=== PATIENT | male | born 1960 | race American Indian/Alaskan Native ===

== ENCOUNTER 2017-06-19 13:14 | Emergency (ER) | payer BC ==
[2017-06-19 16:22] LABS: Bilirubin,Urine NEG (Negative); Blood,Urine NEG (Negative); Color,Urine Yellow (Yellow); Mucus,Urine FEW /HPF; Nitrite,Urine NEG (Negative); Protein,Urine <15 mg/dL mg/dL (Negative); Urobilinogen,Urine < 2.0 mg/dL (<2.0)
--- NOTE | 2017-06-19 19:09 | Emergency Department Report ---
ED Back Pain/Injury HPI - General Chief Complaint: Back Pain/Injury Stated Complaint: BACK PAINS Time Seen by Provider: 06/19/17 18:56 Source: patient Limitations: No Limitations - History of Present Illness Initial Comments: This is a 56-year-old male nontoxic, well nourished in appearance, no acute signs of distress presents to the ED with c/o of low back pain status post fall that occurred 2 weeks ago. He stated he was at work and slipped on the stairs walking down a landed on his lower back. Patient denies any bladder or bowel instability. Patient denies any numbness, tingling, fever, chills, nausea, vomiting, headache, stiff neck, chest pain or shortness of breath. Patient denies any other trauma. Patient denies loss of consciousness. Denies any head trauma. Patient denies any allergies or past medical history. MD Complaint: back pain, fall -: week(s) (2) Similar Symptoms Previously: No Place: work Radiation: none Severity: mild Severity scale (0 -10): 8 Quality: aching Consistency: constant Improves With: none Worsens With: none Context: while lifting, turning/twisting, fall Associated Symptoms: denies other symptoms. denies: confusion, weakness, chest pain, numbness, difficulty walking, cough, difficulty urinating, diaphoresis, incontinence, fever/chills, constipation, headaches, abdominal pain, loss of appetite, malaise, nausea/vomiting, rash, seizure, shortness of breath, syncope - Related Data Previous Rx's Medication Instructions Recorded Last Taken Type Cyclobenzaprine [Flexeril] 10 mg PO QHS PRN #7 tablet 06/19/17 Unknown Rx Ibuprofen [Motrin] 600 mg PO Q8H PRN #30 tablet 06/19/17 Unknown Rx Allergies Allergy/AdvReac Type Severity Reaction Status Date / Time No Known Allergies Allergy Unverified 06/19/17 14:20 ED Review of Systems ROS: Stated complaint: BACK PAINS Other details as noted in HPI Constitutional: denies: chills, fever Eyes: denies: eye pain, eye discharge, vision change ENT: denies: ear pain, throat pain Respiratory: denies: cough, shortness of breath, wheezing Cardiovascular: denies: chest pain, palpitations Endocrine: no symptoms reported Gastrointestinal: denies: abdominal pain, nausea, diarrhea Genitourinary: denies: urgency, dysuria Musculoskeletal: back pain. denies: joint swelling, arthralgia Skin: denies: rash, lesions Neurological: denies: headache, weakness, paresthesias Psychiatric: denies: anxiety, depression Hematological/Lymphatic: denies: easy bleeding, easy bruising ED Past Medical Hx - Past Medical History Previous Medical History?: No - Surgical History Past Surgical History?: No - Social History Smoking Status: Former Smoker Substance Use Type: Alcohol, Non Opiate Pain - Medications Home Medications: Home Medications Medication Instructions Recorded Confirmed Last Taken Type Cyclobenzaprine [Flexeril] 10 mg PO QHS PRN #7 tablet 06/19/17 Unknown Rx Ibuprofen [Motrin] 600 mg PO Q8H PRN #30 tablet 06/19/17 Unknown Rx ED Physical Exam - General Limitations: No Limitations General appearance: alert, in no apparent distress - Head Head exam: Present: atraumatic, normocephalic - Eye Eye exam: Present: normal appearance Pupils: Present: normal accommodation - ENT ENT exam: Present: mucous membranes moist - Neck Neck exam: Present: normal inspection, full ROM. Absent: tenderness, meningismus, lymphadenopathy, thyromegaly - Respiratory Respiratory exam: Present: normal lung sounds bilaterally. Absent: respiratory distress, wheezes, rales, rhonchi, stridor, chest wall tenderness, accessory muscle use, decreased breath sounds, prolonged expiratory - Cardiovascular Cardiovascular Exam: Present: regular rate, normal rhythm, normal heart sounds. Absent: bradycardia, tachycardia, irregular rhythm, systolic murmur, diastolic murmur, rubs, gallop - GI/Abdominal GI/Abdominal exam: Present: soft, normal bowel sounds. Absent: distended, tenderness, guarding, rebound, rigid, diminished bowel sounds - Rectal Rectal exam: Present: deferred - Extremities Exam Extremities exam: Present: normal inspection, full ROM, normal capillary refill. Absent: tenderness, pedal edema, joint swelling, calf tenderness - Back Exam Back exam: Present: normal inspection, full ROM, paraspinal tenderness (lumbar region), vertebral tenderness (lumbar region). Absent: tenderness, CVA tenderness (R), CVA tenderness (L), muscle spasm, rash noted - Expanded Back Exam Expanded Back exam: Present: normal rectal tone. Absent: saddle anesthesia Back exam: Negative Straight Leg Raising: Left, Right - Neurological Exam Neurological exam: Present: alert, oriented X3, CN II-XII intact, normal gait, reflexes normal - Psychiatric Psychiatric exam: Present: normal affect, normal mood - Skin Skin exam: Present: warm, dry, intact, normal color. Absent: rash - Other Other exam information: No bladder or bowel instability. No joint swelling or redness. No deformity. No numbness, no tingling. No ecchymosis. No abdominal distention. ED Course Vital Signs 06/19/17 14:20 Temperature 98.1 F Pulse Rate 61 Respiratory 18 Rate Blood Pressure 122/81 O2 Sat by Pulse 97 Oximetry - Reevaluation(s) Reevaluation #1: 06/19/17 19:10 Patient is speaking in full sentences with no signs of distress noted. ED Medical Decision Making - Medical Decision Making ED course; this is a 56-year-old male that presents with low back strain 1- patient was examined by me patient is stable. X-ray of lumbar spine has been obtained and dictated by radiologist within normal limits. Patient is notified of x-ray results with no questions noted by the patient. 2- patient received ibuprofen in the ED with persistent symptoms are improving and are subsiding. 3- patient received ibuprofen and Flexeril at discharge and was instructed not to operate any machinery while taking Flexeril due to sebaceous drowsiness. 4- patient was instructed to Follow-up with your primary care doctor in 3-5 days or if symptoms worsen such as bladder or bowel stability, chest pain, short of breath, numbness or tingling sensation in extremities, headache, dizziness, visual changes, nausea vomiting, or abdominal pain, return back to emergency room as was possible. 5- At time time of discharge, the patient does not seem toxic or ill in appearance. No acute signs of distress noted. Patient agrees to discharge treatment plan of care. No further questions noted by the patient. Critical care attestation.: If time is entered above; I have spent that time in minutes in the direct care of this critically ill patient, excluding procedure time. ED Disposition Clinical Impression: Low back strain Qualifiers: Encounter type: initial encounter Qualified Code(s): S39.012A - Strain of muscle, fascia and tendon of lower back, initial encounter Fall Qualifiers: Encounter type: initial encounter Qualified Code(s): W19.XXXA - Unspecified fall, initial encounter Disposition: DC-01 TO HOME OR SELFCARE Is pt being admited?: No Does the pt Need Aspirin: No Condition: Stable Instructions: Low Back Strain (ED), Fall Prevention (ED), Cyclobenzaprine (By mouth), Ibuprofen (By mouth) Additional Instructions: Follow-up with your primary care doctor in 3-5 days or if symptoms worsen such as bladder or bowel stability, chest pain, short of breath, numbness or tingling sensation in extremities, headache, dizziness, visual changes, nausea vomiting, or abdominal pain, return back to emergency room as was possible. Take ibuprofen and Flexeril as prescribed. Do not operate heavy machinery while taking Flexeril due to sedation Prescriptions: Cyclobenzaprine [Flexeril] 10 mg PO QHS PRN #7 tablet PRN Reason: Muscle Spasm Ibuprofen [Motrin] 600 mg PO Q8H PRN #30 tablet PRN Reason: Pain Referrals: PRIMARY CAREMD [Primary Care Provider] - 3-5 Days JOSE HERNÁNDEZ MD [Staff Physician] - 3-5 Days [facility] [Outside] - 3-5 Days [facility] [Outside] - 3-5 Days Forms: Work/School Release Form(ED)
[2017-06-19] MEDS ORDERED: MOTRIN PO ONE (19:11)
[2017-06-19 19:21] VITALS: BP 121/82
--- NOTE | 2017-06-19 19:57 | XRay Report ---
FINAL REPORT PROCEDURE: XR SPINE LUMBOSACRAL 2-3V TECHNIQUE: Lumbar spine, three views HISTORY: spinal lumbar pain s/p fall COMPARISON: No prior studies are available for comparison. FINDINGS: There is 3 millimeters anterolisthesis of L5 on S1. Vertebral body heights are maintained. There are small anterior osteophytes seen at L3-4 and L4-5. No scoliosis. IMPRESSION: No acute fracture is seen. There is grade 1 anterolisthesis of L5 on S1, of uncertain chronicity, possibly chronic
== END 2017-06-19 20:35 | disposition home or self-care (01) ==
LOC: ED 13:14
DX: S39.012A Strain of muscle, fascia and tendon of lower back, initial encounter (principal); W18.30XA Fall on same level, unspecified, initial encounter; Y93.89 Activity, other specified; Y92.89 Other specified places as the place of occurrence of the external cause; Y99.8 Other external cause status
CPT/HCPCS: 72100; 81001

== ENCOUNTER 2018-01-17 15:40 | Emergency (ER) | payer BC ==
[2018-01-17 16:12] LABS: Basophils % (Auto) 0.5 % (0.0-1.8); Eosinophils % (Auto) 0.6 % (0.0-4.3); Hematocrit 44.9 % (35.5-45.6); Hemoglobin 14.7 gm/dl (11.8-15.2); Lymphocytes # (Auto) 1.8 K/mm3 (1.2-5.4); Lymphocytes % (Auto) 22.2 % (13.4-35.0); Mean Corpuscular HGB Conc 33 % (32-34); Mean Corpuscular Hemoglobin 31 pg (28-32); Mean Corpuscular Volume 95 fl (84-94); Monocytes # (Auto) 0.9 K/mm3 (0.0-0.8); Monocytes % (Auto) 11.6 % (0.0-7.3); Platelet Count 216 K/mm3 (140-440); Red Blood Count 4.74 M/mm3 (3.65-5.03); Red Cell Distribution Width 13.7 % (13.2-15.2)
[2018-01-17 16:37] LABS: BUN/Creatinine Ratio 21; Blood Urea Nitrogen 17 mg/dL (9-20); Calcium 9.4 mg/dL (8.4-10.2); Hemolysis Index 10
[2018-01-17] MEDS ORDERED: TYLENOL PO ONE (18:18)
[2018-01-17] MEDS ORDERED: MOTRIN PO ONE (18:18)
--- NOTE | 2018-01-17 18:19 | Emergency Department Report ---
ED General Adult HPI - General Chief complaint: Weakness Stated complaint: LEFT ARM NUMB/TINGLE Time Seen by Provider: 01/17/18 17:57 Source: patient, RN notes reviewed, old records reviewed Mode of arrival: Ambulatory Limitations: Physical Limitation - History of Present Illness Initial comments: This is a 57-year-old gentleman who is not known to this provider, who is a [id number] male. He presents to the ER with 2 complaints. His first complaint is left wrist and volar hand numbness. This is painless, present for 2 months, intermittent, does not radiate, does not have exacerbating or relieving factors. He reports the numbness begins at his fingertips on his ring and pinky, moves to his wrist. It does not move further proximal than that. He denies headache, neck pain, chest pain, abdominal pain, shortness of breath, loss of vision, bladder or bowel retention/incontinence. He has a secondary complaint of nontraumatic left-sided shoulder pain which started yesterday. It is sharp, increases with palpation, range of motion and decreases with rest. It does not radiate anywhere. No inciting factors that he is aware of. -: Gradual Location: left, upper extremity Radiation: non-radiation Quality: other Consistency: other Improves with: other Worsens with: other Associated Symptoms: other. denies: confusion, chest pain, cough, diaphoresis, fever/chills, headaches, loss of appetite, malaise, nausea/vomiting, rash, seizure, shortness of breath, syncope, weakness - Related Data Previous Rx's Medication Instructions Recorded Last Taken Type Cyclobenzaprine [Flexeril] 10 mg PO QHS PRN #7 tablet 06/19/17 Unknown Rx Ibuprofen [Motrin] 600 mg PO Q8H PRN #30 tablet 06/19/17 Unknown Rx Acetaminophen [Tylenol Arthritis] 650 mg PO Q6HR PRN #30 tablet.er 01/17/18 Unknown Rx Ibuprofen [Motrin] 600 mg PO Q8H PRN #30 tablet 01/17/18 Unknown Rx Allergies Allergy/AdvReac Type Severity Reaction Status Date / Time No Known Allergies Allergy Verified 01/17/18 15:51 ED Review of Systems ROS: Stated complaint: LEFT ARM NUMB/TINGLE Other details as noted in HPI Constitutional: denies: fever, malaise Eyes: denies: eye discharge ENT: denies: epistaxis Respiratory: denies: cough Cardiovascular: denies: chest pain Gastrointestinal: denies: abdominal pain Genitourinary: denies: urgency Musculoskeletal: arthralgia Skin: denies: lesions Neurological: paresthesias Psychiatric: denies: anxiety ED Past Medical Hx - Past Medical History Previous Medical History?: No - Surgical History Additional Surgical History: NONE - Social History Smoking Status: Never Smoker Substance Use Type: None - Medications Home Medications: Home Medications Medication Instructions Recorded Confirmed Last Taken Type Cyclobenzaprine [Flexeril] 10 mg PO QHS PRN #7 tablet 06/19/17 Unknown Rx Ibuprofen [Motrin] 600 mg PO Q8H PRN #30 tablet 06/19/17 Unknown Rx Acetaminophen [Tylenol Arthritis] 650 mg PO Q6HR PRN #30 tablet.er 01/17/18 Unknown Rx Ibuprofen [Motrin] 600 mg PO Q8H PRN #30 tablet 01/17/18 Unknown Rx ED Physical Exam - General Limitations: Physical Limitation General appearance: alert, in no apparent distress - Head Head exam: Present: atraumatic, normocephalic - Eye Eye exam: Present: normal appearance, EOMI. Absent: nystagmus - ENT ENT exam: Present: normal orophraynx, mucous membranes moist, normal external ear exam - Neck Neck exam: Present: normal inspection, full ROM. Absent: tenderness, meningismus - Respiratory Respiratory exam: Present: normal lung sounds bilaterally. Absent: respiratory distress, chest wall tenderness - Cardiovascular Cardiovascular Exam: Present: regular rate, normal rhythm, normal heart sounds. Absent: bradycardia, tachycardia, irregular rhythm, systolic murmur, diastolic murmur, rubs, gallop - GI/Abdominal GI/Abdominal exam: Present: soft, normal bowel sounds. Absent: distended, tenderness, guarding, rebound, rigid, pulsatile mass - Rectal Rectal exam: Present: deferred - Extremities Exam Extremities exam: Present: normal inspection, full ROM (full range of motion to the bilateral lower extremities in the right upper extremity. Bilateral thumb opposition, finger abduction, finger adduction, flexion, extension intact. Thumb range of motion intact bilaterally. There issnuffbox or thumb tenderness. ), tenderness (sensation intact to the bilateral deltoid, median, radial, ulnar distribution. There is left-sided anterior and lateral shoulder tenderness. There is no redness, pus, streaking. Compartments soft.), normal capillary refill, other (2+ pulses noted in the bilateral upper, lower extremities. Compartments soft. No long bony tenderness. The pelvis is stable.). Absent: pedal edema, joint swelling, calf tenderness - Back Exam Back exam: Present: normal inspection, full ROM. Absent: tenderness, CVA tenderness (R), paraspinal tenderness, vertebral tenderness - Neurological Exam Neurological exam: Present: alert, oriented X3, CN II-XII intact, normal gait, other (Extraocular movements intact. Tongue midline. No facial droop. Facial sensation intact to light touch in the V1, V2, V3 distribution bilaterally. 5 and 5 strength in 4 extremities.. Sensation is intact to light touch in 4 extremities.). Absent: motor sensory deficit - Psychiatric Psychiatric exam: Present: normal affect, normal mood - Skin Skin exam: Present: warm, dry, intact, normal color. Absent: rash ED Course Vital Signs 01/17/18 15:51 Temperature 98.8 F Pulse Rate 64 Respiratory 20 Rate Blood Pressure 120/75 O2 Sat by Pulse 98 Oximetry ED Medical Decision Making - Lab Data Result diagrams: 01/17/18 15:59 01/17/18 15:59 Vital Signs 01/17/18 15:51 Temperature 98.8 F Pulse Rate 64 Respiratory 20 Rate Blood Pressure 120/75 O2 Sat by Pulse 98 Oximetry Lab Results 01/17/18 01/17/18 Range/Units 15:59 15:59 WBC 8.0 (4.5-11.0) K/mm3 RBC 4.74 (3.65-5.03) M/mm3 Hgb 14.7 (11.8-15.2) gm/dl Hct 44.9 (35.5-45.6) % MCV 95 H (84-94) fl MCH 31 (28-32) pg MCHC 33 (32-34) % RDW 13.7 (13.2-15.2) % Plt Count 216 (140-440) K/mm3 Lymph % (Auto) 22.2 (13.4-35.0) % [place] % (Auto) 11.6 H (0.0-7.3) % Eos % (Auto) 0.6 (0.0-4.3) % Baso % (Auto) 0.5 (0.0-1.8) % Lymph # 1.8 (1.2-5.4) K/mm3 [place] # 0.9 H (0.0-0.8) K/mm3 Eos # 0.0 (0.0-0.4) K/mm3 Baso # 0.0 (0.0-0.1) K/mm3 Seg Neutrophils % 65.1 (40.0-70.0) % Seg Neutrophils # 5.2 (1.8-7.7) K/mm3 Sodium 139 (137-145) mmol/L Potassium 4.4 (3.6-5.0) mmol/L Chloride 103.1 (98-107) mmol/L Carbon Dioxide 25 (22-30) mmol/L Anion Gap 15 mmol/L BUN 17 (9-20) mg/dL Creatinine 0.8 (0.8-1.5) mg/dL Estimated GFR > 60 ml/min BUN/Creatinine Ratio 21 % Glucose 111 H (75-100) mg/dL Calcium 9.4 (8.4-10.2) mg/dL Troponin T < 0.010 (0.00-0.029) ng/mL - EKG Data When compared to previous EKG there are: previous EKG unavailable 01/17/18 19:27 Sinus, 62 bpm, normal axis, KS interval prolonged, high left ventricular voltages, incomplete right bundle branch block, not having chest pain, not a STEMI - Radiology Data Radiology results: report reviewed, image reviewed TECHNIQUE: AP view of the shoulder was obtained with internal and external rotation as well as scapular Y-view. HISTORY: left shoudler pain COMPARISON: No prior studies are available for comparison. FINDINGS: No fracture is visualized. There is widening of the AC joint measuring 10.5 millimeters suggesting grade 2 AC separation. Small calcification is seen superior to the glenoid humeral joint space measuring 3.3 millimeter. One is also visualized overlying the axillary recess measuring 3.4 millimeters. These may represent calcified loose bodies or tendon calcifications. IMPRESSION: Abnormal widening AC joint suggesting grade 2 separation. No fractures are visualized. Small soft tissue calcifications as described suggesting calcified loose bodies or possibly tendon calcifications. - Medical Decision Making Differential diagnosis, including but not limited to: Peripheral neuropathy, fracture, dislocation, acromioclavicular separation Assessment and plan: 57-year-old male with 2 complaints. His first complaint is left distal volar numbness present for 2 months. He has an NIH score of 0, and does not have any physical exam findings currently to suggest infection, cellulitis or tendinitis of the left hand. This can be followed up expectantly by a primary care doctor or orthopedist. His second complaint is left-sided shoulder pain which is exquisitely reproducible. There is no trauma but an x-ray suggested an acromioclavicular separation. There is no redness, warmth, pus or streaking, and his compartments are soft, so septic joint and compartment syndrome very unlikely. He is placed in a shoulder sling, given pain medication, and he can follow up with outpatient orthopedics for this. Critical care attestation.: If time is entered above; I have spent that time in minutes in the direct care of this critically ill patient, excluding procedure time. ED Disposition Clinical Impression: AC separation, Numbness of left hand Disposition: - TO HOME OR SELFCARE Is pt being admited?: No Does the pt Need Aspirin: No Condition: Good Instructions: Acromioclavicular Separation (ED), Peripheral Neuropathy (ED) Additional Instructions: Use the shoulder sling as is needed. Take pain medications as needed/directed. Follow up with your primary care doctor or neurology specialist for left hand numbness within the next month. X-ray of the left shoulder suggested acromioclavicular separation. Follow up with an orthopedist for this within the next week. Return to the ER right away with new pain, worsened pain, migration of pain, projectile vomiting, change in mental status, confusion, inability to tolerate liquid feeds. Referrals: PRIMARY CARE, [Primary Care Provider] - 3-5 Days JESSENIA PERAZA MD [Staff Physician] - 3-5 Days JANET ULLOA MD [Staff Physician] - 3-5 Days MR PATEL MD [Staff Physician] - 3-5 Days
--- NOTE | 2018-01-17 18:52 | XRay Report ---
FINAL REPORT PROCEDURE: Three view left shoulder series TECHNIQUE: AP view of the shoulder was obtained with internal and external rotation as well as scapular Y-view. HISTORY: left shoudler pain COMPARISON: No prior studies are available for comparison. FINDINGS: No fracture is visualized. There is widening of the AC joint measuring 10.5 millimeters suggesting grade 2 AC separation. Small calcification is seen superior to the glenoid humeral joint space measuring 3.3 millimeter. One is also visualized overlying the axillary recess measuring 3.4 millimeters. These may represent calcified loose bodies or tendon calcifications. IMPRESSION: Abnormal widening AC joint suggesting grade 2 separation. No fractures are visualized. Small soft tissue calcifications as described suggesting calcified loose bodies or possibly tendon calcifications.
[2018-01-17 19:45] VITALS: BP 111/78
== END 2018-01-17 19:46 | disposition home or self-care (01) ==
LOC: ED 15:40
DX: S43.102A Unspecified dislocation of left acromioclavicular joint, initial encounter (principal); R20.0 Anesthesia of skin; X58.XXXA Exposure to other specified factors, initial encounter; Y93.89 Activity, other specified; Y99.8 Other external cause status; Y92.89 Other specified places as the place of occurrence of the external cause
CPT/HCPCS: 36415; 80048; 84484; 85025; 93005; 93010